=== PATIENT | male | born 1935 | race Caucasian/White ===

== ENCOUNTER → 2023-08-14 14:20 | Outpatient (REF) | payer OTHER, SELFPAY | LOC: RAD 14:20 | PROVIDERS: ATTENDING PHYSICIAN Family Medicine | DX: M25.551 Pain in right hip (principal); M54.41 Lumbago with sciatica, right side | CPT/HCPCS: 72110; 73523 ==

== ENCOUNTER 2024-01-08 17:29 | Emergency (ER) | payer OTHER, SELFPAY ==
[2024-01-08 17:30] VITALS: BP 159/88
[2024-01-08 20:00] VITALS: BP 145/80
[2024-01-08 20:05] VITALS: BMI 24.9
--- NOTE | 2024-01-08 21:00 | ED.GENMED ---
History of Present Illness
General
Chief Complaint: Fall
Source: patient and spouse
Exam Limitations: none
Time Seen by Provider: 01/08/24 20:58
History of Present Illness
History of Present Illness:
This is a 88 year old male that comes in with c/o left sided rib pain. States that he was going from his family room into their kitchen. States that there is a step there and he tripped and landed on his left side. States that he is not on any
blood thinners and he did not hit his head. Denies any fever, chills, chest pain, SOB, abd pain, nausea, vomiting, diarrhea, headache, dizziness.
Past History
Past History
ED Past Medical History: Other (Cyst on liver, Diverticulitis, renal calculus, Bowel obstruction, ); Negative Asthma, HTN, Hypercholesterolemia or NIDDM
ED Past Surgical History: Bowel resection (for Diverticulitis with abscess), Orthopedic (Right and left knee surgery, Lower back surgery) and Other (Colostomy with reversal, Left ear reconstruction)
Social History
Tobacco: Non-smoker
Alcohol: None
Drug: None
Personal:
Living: with family
Family History
Family History: CAD
Review of Systems
Review of Systems
All Other Systems: ROS reviewed and negative except as documented in HPI and ROS
Constitutional: Reports no symptoms; Denies fever or chills
EENT: Reports no symptoms
Respiratory: Reports no symptoms; Denies cough or trouble breathing
Cardiac: Reports no symptoms; Denies chest pain
ABD/GI: Reports no symptoms; Denies abdominal pain, nausea, vomiting or diarrhea
: Reports no symptoms; Denies dysuria, frequency or urgency
Musculoskeletal: Reports other (left sided rib pain)
Skin: Reports no symptoms
Neurological: Reports no symptoms; Denies dizzy or headache
Psychiatric: Reports no symptoms
Phy Exam
General Physical Exam
General Presentation: mild distress
General age: appears stated age
General Skin: warm and dry
General Habitus: elderly
General Mental: alert
General Hydration: appears well hydrated
ENT Exam
ENT Exam: TM's normal, pharynx normal and neck supple
Eye Exam
Eye Exam: EOMI
Cardiovascular Exam
Cardiovascular Exam: regular rate/rhythm, no edema and normal peripheral pulses
Pulmonary Exam
Pulmonary Exam: no respiratory distress, chest non tender, no rhonchi, no wheezing, no cough and other (Fine crackles left base)
Gastrointestinal Exam
Gastrointestinal Exam: normal bowel sounds, non tender, soft, no organomegaly, no pulsatile mass and non distended
Musculoskeletal Exam
Musculoskeletal Exam: full ROM and other (left sided rib tenderness with palpation)
Skin Exam
Skin Exam: normal color, warm/dry, no rash and no petechia
Psychiatric Exam
Psychiatric Exam: normal mood/affect
Course
Orders/Labs/Results
Orders:
Orders
01/08/24 17:35
CR Chest - 2 Views Urgent
Comment:
Reason For Exam: fall/pain
01/08/24 17:42
CR Ribs-left 3 Vw W/pa Chest Urgent
Comment:
Reason For Exam: fall
01/08/24 21:34
HYDROmorphone [Dilaudid] 1 mg IV NOW STA
Ondansetron Injectable [Zofran] 4 mg IV NOW STA
01/08/24 21:40
Complete Blood Count/With Diff Urgent
Comprehensive Metabolic Panel Urgent
01/08/24 21:51
Oxycodone [Roxicodone] 10 mg PO NOW STA
Abnormal Lab Results
01/08/24
21:40
WBC 12.0 H 10^3/uL
(4.8-10.8)
RBC 4.48 L 10^6/uL
(4.70-6.10)
MCH 31.9 H pg
(27.0-31.0)
MPV 11.6 H fL
(7.4-10.4)
Abs Immat Gran (auto) 0.1 H 10^3/uL
(0-0.05)
Absolute Neuts (auto) 9.8 H 10^3/uL
(1.4-6.5)
Absolute Lymphs (auto) 0.8 L 10^3/uL
(1.2-3.4)
Absolute Monos (auto) 1.4 H 10^3/uL
(0.1-0.6)
Neutrophils % 81.4 H %
(42.2-75.2)
Lymphocytes % 6.3 L %
(20.5-51.1)
Monocytes % 11.4 H %
(1.7-9.3)
BUN 30 H mg/dl
(9-20)
Glucose 115 H mg/dl
(70-99)
01/08/24 21:40
01/08/24 21:40
Leukocytosis, Dehydration. Glucose nonfasting.
Vital Signs
Initial and Last Documented VS:
Initial Vital Signs
Temp Pulse Resp BP Pulse Ox
97.8 F 63 20 159/88 95
01/08/24 17:30 01/08/24 17:30 01/08/24 17:30 01/08/24 17:30 01/08/24 17:30
Last Documented Vital Signs
Temp Pulse Resp BP Pulse Ox
97.8 F 70 16 155/83 95
01/08/24 17:30 01/08/24 21:43 01/08/24 21:43 01/08/24 21:43 01/08/24 21:43
MDM/Problems Addressed
Differential Diagnosis Includes:
accidental fall, fractured ribs
MDM/Problems Addressed:
This is a 88 year old male that comes in with c/o fall and left sided rib pain.
Will get labs and X-ray.
Back into see patient and . Explained that he has fracture ribs on the left 3-6. This is considered a trauma and he will be unable to stay here. Will medicated patient for pain and attempt Transfer to [place].
Spoke with Dr. Cummings and she will except patient to the ER. Patient will be transfered.
Chronic conditions affecting care:
NA
Acute Exacerbation and/or Progression of Chronic Illness:
NO
*Radiology
Radiology exam reviewed: radiology read reviewed (Chest and Rib series-Mildly displaced acute fractures of the lateral left third through sixth ribs. )
*Pulse Oximetry
Patient hypoxic: no
*EKG
Interpreted by ED Provider?: NA
Rate: EKG- N/A
*Passenger Car Inspector Interpretation
Rate: Passenger Car Inspector- N/A
*Critical Care Note
Total Time (30-74mins, 75-104mins- exclusive of procedures): Not Applicable
ED Attending Note
-
Portions of this chart may have been created with voice recognition software.� Occasional wrong word or��sound alike� substitutions may have occurred due to the inherent limitations of voice recognition software.
Discharge Plan
Departure
Patient Disposition: [facility]
Date of Disposition: 01/08/24
Time of Disposition: 22:45
Patient with high blood pressure during this ER visit?: Yes
Condition: Good
Covid-19: Not Applicable
Discharge Problem:
Multiple left rib fractures
Prescriptions:
No Action
tamsulosin 0.4 MG capsule
0.4 mg PO QPM
Referrals:
Theresa Castillo DO [Family Provider] -
Hospital Transfer
Other hospital: [facility]
I certify that the patient requires transfer: Yes
Discussed case with accepting physician: Dr. Cummings
Reason for transfer: higher level of care and specialties available
Interventions
Interventions:
*Risk Screen - Suicide Last Done: 01/08/24 17:30
*General Assessment Last Done: 01/08/24 17:30
*Neglect/Abuse Screening Last Done: 01/08/24 17:30
*ED COVID-19 Vaccine History Last Done: 01/08/24 19:59
ED-Musculoskeletal Assessment Last Done: 01/08/24 20:05
ED- Neurological Assessment Last Done: 01/08/24 20:05
ED-Skin Assessment Last Done: 01/08/24 20:05
Discharge Date and Time
Print Language: PERSIAN
[2024-01-08 21:43] VITALS: BP 155/83
[2024-01-08] MEDS: ZOFRAN 4 MG IV (21:43)
[2024-01-08] MEDS: DILAUDID 1 MG IV (21:43)
[2024-01-08 21:46] LABS: % Basophils 0.3 % (0-2); % Eosinophils 0.1 % (0-6); % Immature Granulocytes 0.5 % (0-0.5); % Lymphocytes 6.3 % (20.5-51.1); % Monocytes 11.4 % (1.7-9.3); % Neutrophils 81.4 % (42.2-75.2); Absolute Immature Granulocytes 0.1 10^3/uL (0-0.05); Absolute Lymphocytes 0.8 10^3/uL (1.2-3.4); Absolute Monocytes 1.4 10^3/uL (0.1-0.6); Absolute Neutrophils 9.8 10^3/uL (1.4-6.5); Hematocrit 41.5 % (39.0-52.0); Hemoglobin 14.3 g/dL (13.0-18.0); Mean Corp Hgb Conc. 34.5 g/dL (33.0-37.0); Mean Corpuscular Hgb 31.9 pg (27.0-31.0); Mean Corpuscular Volume 92.6 fL (80.0-94.0); Mean Platelet Volume 11.6 fL (7.4-10.4); Nucleated Red Blood Cells % 0 % (-); Platelet Count 201 10^3/uL (130-400); Red Blood Cell Count 4.48 10^6/uL (4.70-6.10); Red Cell Dist. Width 12.7 % (11.5-14.5)
[2024-01-08 22:03] LABS: ALT (SGPT) 19 U/L (0-50); AST (SGOT) 36 U/L (17-59); Albumin 4.7 g/dl (3.5-5.0); Alkaline Phosphatase 47 U/L (38-126); Blood Urea Nitrogen 30 mg/dl (9-20); Calcium 9.4 mg/dl (8.4-10.2); Carbon Dioxide 22 mmol/L (22-30); Chloride 107 mmol/L (98-107); Estimated Creatinine Clearance 44 ml/min; Glucose 115 mg/dl (70-99); Potassium 5.1 mmol/L (3.5-5.1); Sodium 138 mmol/L (135-145); Total Bilirubin 0.8 mg/dl (0.2-1.3); Total Protein 7.5 g/dl (6.3-8.2); eGFR 58.89
[2024-01-08 23:00] VITALS: BP 134/77
== END 2024-01-09 00:05 | disposition short-term general hospital (02) ==
LOC: EMR 17:29
PROVIDERS: Clinical Nurse Specialist Family Health; EMERGENCY PHYSICIAN Emergency Medicine; FAMILY PHYSICIAN Family Medicine
DX: S22.42XA Multiple fractures of ribs, left side, initial encounter for closed fracture (principal); W01.0XXA Fall on same level from slipping, tripping and stumbling without subsequent striking against object, initial encounter; R03.0 Elevated blood-pressure reading, without diagnosis of hypertension
CPT/HCPCS: 99285; 96374; 96375; 71046; 71101; 80053; 85025

== ENCOUNTER → 2025-04-28 13:50 | Outpatient (REF) | payer OTHER, SELFPAY | LOC: RAD 13:50 | PROVIDERS: ATTENDING PHYSICIAN Family Medicine | DX: G89.29 Other chronic pain (principal); M54.50 Low back pain, unspecified | CPT/HCPCS: 72110 ==

== ENCOUNTER 2025-07-04 11:42 | Outpatient (RCR) | payer OTHER, SELFPAY | END 2025-07-04 23:59 | disposition home or self-care (01) | LOC: RPT 11:42 | PROVIDERS: ATTENDING PHYSICIAN Anesthesiology Pain Medicine; FAMILY PHYSICIAN Family Medicine | DX: M54.50 Low back pain, unspecified (principal); R53.1 Weakness; R26.89 Other abnormalities of gait and mobility; Z73.6 Limitation of activities due to disability; R26.2 Difficulty in walking, not elsewhere classified; M21.372 Foot drop, left foot; G62.9 Polyneuropathy, unspecified; Z98.1 Arthrodesis status; R29.6 Repeated falls; Z96.653 Presence of artificial knee joint, bilateral | CPT/HCPCS: 97110; 97162 ==